=== PATIENT | male | born 1980 | race Caucasian/White ===

== ENCOUNTER 2018-10-12 16:37 | Emergency (ER) | payer OTHER ==
[2018-10-12 16:41] VITALS: RESP 18
[2018-10-12] MEDS ORDERED: DIAZEPAM 5 MG/ML 2 ML INJ IM ONE (16:59)
[2018-10-12] MEDS ORDERED: KETOROLAC 30 MG/ML 1 ML VIAL IM STA (16:59)
--- NOTE | 2018-10-12 17:02 | ED ---
Neck Injury/Pain HPI - General Chief Complaint: Neck Pain/Injury Stated Complaint: Neck pain Time Seen by Provider: 10/12/18 16:43 Source: RN notes reviewed, old records reviewed Mode of arrival: ambulatory Limitations: no limitations - History of Present Illness Initial Comments: Patient is a 38-year-old male presents emergency room today with complaints of neck pain. Patient reports that he woke up today and was unable to turn his neck to the left. Patient complains of pain and spasming within the left and right side of the neck. Patient reports that he took one of his mother's Percocet that she has prescribed for chronic pain. Patient states it helped slightly. He has some slightly increased range of motion. He does have a history of degenerative disc disease. He denies any associated chest pain shortness of breath. Patient denies any visual changes or headache. Patient states pain is worse with range of motion of the head and neck. - Related Data Previous Rx's Medication Instructions Recorded Naproxen [Naprosyn] 500 mg PO Q12HR PRN #20 tab 06/10/16 Orphenadrine [Norflex] 100 mg PO Q12H PRN #12 tablet.er 06/10/16 traMADol HCl [Ultram] 50 mg PO Q4H PRN #20 tab 06/10/16 Naproxen [Naprosyn] 500 mg PO Q12H #20 tablet 10/12/18 Orphenadrine [Norflex] 100 mg PO Q12H #12 tablet.er 10/12/18 Allergies Allergy/AdvReac Type Severity Reaction Status Date / Time No Known Allergies Allergy Verified 10/12/18 16:38 Review of Systems ROS Statement: Those systems with pertinent positive or pertinent negative responses have been documented in the HPI. ROS Other: All systems not noted in ROS Statement are negative. Past Medical History Past Medical History: No Reported History History of Any Multi-Drug Resistant Organisms: None Reported Past Surgical History: No Surgical Hx Reported Past Psychological History: No Psychological Hx Reported Smoking Status: Current every day smoker Past Alcohol Use History: None Reported Past Drug Use History: None Reported General Exam - General Exam Comments Initial Comments: 38-year-old male. Patient was in moderate discomfort. Limitations: no limitations General appearance: alert, in no apparent distress Head exam: Present: atraumatic, normocephalic, normal inspection Eye exam: Present: normal appearance, PERRL, EOMI. Absent: scleral icterus, conjunctival injection, periorbital swelling ENT exam: Present: normal exam, mucous membranes moist Neck exam: Present: normal inspection, other (Evidence of right sided torticollis.). Absent: tenderness, meningismus, lymphadenopathy Respiratory exam: Present: normal lung sounds bilaterally. Absent: respiratory distress, wheezes, rales, rhonchi, stridor Cardiovascular Exam: Present: regular rate, normal rhythm, normal heart sounds. Absent: systolic murmur, diastolic murmur, rubs, gallop, clicks GI/Abdominal exam: Present: soft, normal bowel sounds. Absent: distended, tenderness, guarding, rebound, rigid Extremities exam: Present: normal inspection, full ROM, normal capillary refill. Absent: tenderness, pedal edema, joint swelling, calf tenderness Back exam: Present: normal inspection Neurological exam: Present: alert, oriented X3, CN II-XII intact Psychiatric exam: Present: normal affect, normal mood Skin exam: Present: warm, dry, intact, normal color. Absent: rash Course Vital Signs 10/12/18 16:38 Temperature 98.1 F Pulse Rate 77 Respiratory 18 Rate Blood Pressure 133/78 O2 Sat by Pulse 97 Oximetry Medical Decision Making - Medical Decision Making Patient is a 30-year-old male who presents emergency Department today with complaints of neck pain. He reports he is having spasms unable to turn his neck. He denies any falls or trauma. At this time his x-ray was or was not was negative. He does have some evidence of torticollis. Head is rotated towards the right. Patient will be discharged at this time with close follow- up with any primary care physicians. Discussed anti-inflammatory medicine and muscle relaxers. All questions were answered. - Radiology Data Radiology results: report reviewed Negative cervical spine. Disposition Clinical Impression: Torticollis Disposition: HOME SELF-CARE Condition: Good Instructions (If sedation given, give patient instructions): Spasmodic Torticollis (ED) Additional Instructions: Patient has a close follow up with primary care physician. Return to the emergency department if any alarming signs or symptoms occur. Patient should take the medication as prescribed. Return to the emergency department if any alarming signs or symptoms occur. Warm compresses over the area. Prescriptions: Naproxen [Naprosyn] 500 mg PO Q12H #20 tablet Orphenadrine [Norflex] 100 mg PO Q12H #12 tablet.er Is patient prescribed a controlled substance at d/c from ED?: No Referrals: None,Stated [Primary Care Provider] - 1-2 days Kayy Mendoza MD [STAFF PHYSICIAN] - 1-2 days Time of Disposition: 17:52
--- NOTE | 2018-10-12 17:47 | XR ---
EXAMINATION TYPE: XR cervical spine limited DATE OF EXAM: 10/12/2018 COMPARISON: NONE HISTORY: Left-sided neck pain TECHNIQUE: 3 views FINDINGS: Vertebra have normal spacing and alignment. Posterior elements are intact. Atlantoaxial fac et joint is normal. There are no cervical ribs. IMPRESSION: Negative cervical spine exam.
[2018-10-12 18:06] VITALS: BP 120/63; PULSE 62; TEMP 97.2
== END 2018-10-12 18:04 | disposition home or self-care (01) ==
LOC: EC 16:37
DX: M43.6 Torticollis (principal); F17.200 Nicotine dependence, unspecified, uncomplicated; Z87.39 Personal history of other diseases of the musculoskeletal system and connective tissue
CPT/HCPCS: 72040; 99284; 96372 ×2; J3360; J1885

== ENCOUNTER → 2019-04-23 | Outpatient (CLI) | payer OTHER ==
--- NOTE | 2019-04-23 08:53 | US ---
EXAMINATION TYPE: US gallbladder DATE OF EXAM: 04/23/2019 COMPARISON: NONE CLINICAL HISTORY: R10.11 RUQ PAIN. Pt states RUQ pain x 1 month EXAM MEASUREMENTS: Liver Length: 22.2 cm Gallbladder Wall: 0.3 cm CBD: 0.4 cm Right Kidney: 10.6 x 4.0 x 5.6 cm Morbidly obese pt Pancreas: Body wnl, head and tail obscured by overlying bowel gas Liver: Enlarged. There is increased echogenicity of the hepatic parenchyma with diminished visualiza tion of the portal triads most commonly relating to hepatic steatosis and limiting evaluation for und erlying hepatic masses. Gallbladder: wall thickness upper limits of normal, otherwise appeared wnl Evidence for sonographic Mendez's sign: No CBD: wnl Right Kidney: wnl, lower pole gassed out IMPRESSION: 1. Sonographic findings most commonly related to hepatic steatosis. Correlate with liver function saranya ts. 2. Gallbladder wall thickness is upper limits of normal. HIDA scan with CCK could be considered to ev aluate for biliary dyskinesia or chronic cholecystitis. No current evidence of acute cholecystitis or cholelithiasis.
--- NOTE | 2019-04-23 09:27 | FL ---
EXAMINATION TYPE: FL UGI air DATE OF EXAM: 04/23/2019 COMPARISON: NONE HISTORY: Abdominal pain TECHNIQUE: A double contrast UGI study is performed. 2.20 min flouro times was used. 122 flouro imag es taken. FINDINGS: Electronic Heat Seal Operator image of the abdomen shows no gross abnormality. The esophagus shows normal motility and emptying into the stomach. No evidence of hiatal hernia or s tricture noted. The stomach shows normal distensibility and peristalsis however there is diffuse thickening of the mu cosal folds. No evidence of any mass or ulcer disease. No significant gastroesophageal reflux was s een during real time performance of this study. The duodenal bulb, sweep, and proximal small bowel loops are unremarkable. IMPRESSION: Mild diffuse thickening of the gastric rugal folds most commonly relates to gastritis. N o focal ulcer is seen.
== END | disposition home or self-care (01) ==
LOC: RADUSWWP 08:07
PROVIDERS: ATTEND Family Medicine
DX: K31.89 Other diseases of stomach and duodenum (principal)
CPT/HCPCS: 74246; 76705

== ENCOUNTER → 2019-05-06 | Outpatient (CLI) | payer OTHER ==
--- NOTE | 2019-05-06 15:15 | NM ---
EXAMINATION TYPE: NM hepatobiliary w EF DATE OF EXAM: 05/06/2019 COMPARISON: Gallbladder ultrasound April 23, 2019 HISTORY: Abdominal pain per order. TECHNIQUE: After the intravenous administration of 4.75 mCi Tc 99m Mebrofenin hepatobiliary scintigra phy is performed. Immediate images post injection. FINDINGS: There is satisfactory initial accumulation of tracer by the liver. The gallbladder is visualized wit hin 15 minutes. The small bowel activity is noted within 30 minutes. At one hour 8 ounces of oral e nsure plus is given to mimic CCK and gallbladder ejection fraction is calculated at 29 %, diminished from the normal range. Therefore there is no scintigraphic evidence of cystic or common bile duct ob struction to suggest acute cholecystitis . IMPRESSION: Ejection fraction is 29%, diminished from the normal range, scintigraphic findings consis tent with underlying gallbladder dyskinesia.
== END | disposition home or self-care (01) ==
LOC: RADNMMAIN 13:05
PROVIDERS: ATTEND Family Medicine
DX: K76.0 Fatty (change of) liver, not elsewhere classified (principal); R16.0 Hepatomegaly, not elsewhere classified; R10.9 Unspecified abdominal pain; M54.5 Low back pain
CPT/HCPCS: 78226; A9537